=== PATIENT | female | born 1960 | race Caucasian/White ===

== ENCOUNTER 2018-02-04 06:09 | Emergency (ER) | payer OTHER ==
[2018-02-04] MEDS ORDERED: IPRATROPIUM/ALBUTEROL 0.5-2.5 MG/3 ML AMPUL NEB ONE (06:22)
[2018-02-04] MEDS ORDERED: METHYLPREDNISOLONE INJ 125 MG/2 ML SDV IV ONE (06:32)
--- NOTE | 2018-02-04 06:37 | ER Document Report ---
ED General - General Chief Complaint: Cough Stated Complaint: COUGH Time Seen by Provider: 02/04/18 06:26 Information source: Patient Notes: 57-year-old female with history of COPD presents the emergency department with productive cough over the last 3 days. Patient states that the cough has been worsening. She is coughing up yellow sputum. Patient denies any fever or chills. Patient is not on any home oxygen. She does not have a nebulizer machine at home. Patient states that she continues to smoke. Patient denies any chest pain but is having some difficulty breathing. TRAVEL OUTSIDE OF THE [place] IN LAST 30 DAYS: No - Related Data Allergies/Adverse Reactions: codeine Adverse Reaction (Verified 08/30/15 04:11) Past Medical History - General Information source: Patient - Social History Smoking Status: Current Every Day Smoker Family History: Reviewed & Not Pertinent Pulmonary Medical History: Reports: Hx COPD - no home O2 Past Surgical History: Reports: Hx Abdominal Surgery - gastric bypass, Hx Cholecystectomy, Hx Gastric Bypass Surgery, Hx Orthopedic Surgery - spinal surgery - Immunizations Hx Diphtheria, Pertussis, Tetanus Vaccination: Yes Review of Systems - Review of Systems Constitutional: No symptoms reported EENT: No symptoms reported Cardiovascular: No symptoms reported Respiratory: Cough, Wheezing Gastrointestinal: No symptoms reported Genitourinary: No symptoms reported Female Genitourinary: No symptoms reported Musculoskeletal: No symptoms reported Skin: No symptoms reported Hematologic/Lymphatic: No symptoms reported Neurological/Psychological: No symptoms reported -: Yes All other systems reviewed and negative Physical Exam - Vital signs Vitals: Pulse Resp Pulse Ox 123 H 22 H 84 L 02/04/18 06:14 02/04/18 06:14 02/04/18 06:14 - Notes Notes: PHYSICAL EXAMINATION: GENERAL: Frail, cachetic. HEAD: Atraumatic, normocephalic. EYES: Pupils equal round and reactive to light, extraocular movements intact, conjunctiva are normal. ENT: Nares patent, oropharynx clear without exudates. Moist mucous membranes. NECK: Normal range of motion, supple without lymphadenopathy LUNGS: Slight wheezing to the left lung base. HEART: Regular rate and rhythm without murmurs ABDOMEN: Soft, nontender, nondistended abdomen. No guarding, no rebound. No masses appreciated. Female : deferred Musculoskeletal: Normal range of motion, no pitting or edema. No cyanosis. NEUROLOGICAL: Cranial nerves grossly intact. Normal speech, normal gait. Normal sensory, motor exams PSYCH: Normal mood, normal affect. SKIN: Warm, Dry, normal turgor, no rashes or lesions noted. Course - Re-evaluation Re-evalutation: 02/04/18 06:36 EKG: Ventricular rate 122, OK of 124, QRS duration 156, QTc 473, sinus rhythm. No ST segment elevation. 02/04/18 09:34 Patient is tachycardic on arrival. Her heart rate is in the 120s. Patient's oxygen saturation was 84% on room air. She does not have home oxygen. Patient was given a DuoNeb treatment and Solu-Medrol. Labs and imaging obtained. Chest x-ray shows a left sided pneumonia. Patient's white count is within normal limits. Patient continues to have hypoxia off of oxygen. She continues to be tachycardic. I told the patient that she needs to be admitted to the hospital for further monitoring, treatment, and to get the patient started on home oxygen. Patient declines admission. Patient wants to leave AGAINST MEDICAL ADVICE. Patient is able to make decisions for herself. She is awake, alert, oriented x3. Patient understands that she may or her condition may worsen by leaving AGAINST MEDICAL ADVICE. Patient states that if she begins feeling worse she will return to the hospital but she does not want to stay at this time. I will start the patient on levofloxacin. Patient instructed to take the medication as directed, to follow-up with her primary care physician this week, and to return for worsening symptoms. - Vital Signs Vital signs: Temp Pulse Resp BP Pulse Ox 123 H 23 H 110/62 93 02/04/18 06:20 02/04/18 09:03 02/04/18 09:03 02/04/18 09:03 - Laboratory Result Diagrams: 02/04/18 06:35 02/04/18 07:40 Laboratory results interpreted by me: 02/04/18 02/04/18 06:35 07:40 RDW 14.3 H Seg Neutrophils % 84.6 H Lymphocytes % 8.7 L Creatinine 0.47 L Glucose 144 H Alkaline Phosphatase 172 H Discharge - Discharge Clinical Impression: Pneumonia Qualifiers: Pneumonia type: due to unspecified organism Laterality: left Lung location: unspecified part of lung Qualified Code(s): J18.9 - Pneumonia, unspecified organism Condition: Serious Disposition: AGAINST MEDICAL ADVICE Instructions: Pneumonia ([facility]) Prescriptions: Levofloxacin [Levaquin] 750 mg PO DAILY #5 tablet Referrals: FAREED MESSINA PA-C [ALLIED HEALTH PROFESSIONAL] - Follow up as needed
[2018-02-04] MEDS ORDERED: ALBUTEROL SULFATE 0.083% NEB 2.5 MG/3 ML AMPUL NEB ONE (06:42)
[2018-02-04 07:06] LABS: ABSOLUTE LYMPHOCYTES (AUTO) 0.8 10^3/uL (0.5-4.7); ABSOLUTE MONOCYTES (AUTO) 0.6 10^3/uL (0.1-1.4); ABSOLUTE NEUT (AUTO) 7.8 10^3/uL (1.7-8.2); BASOPHILS % (AUTO) 0.2 % (0-2); EOSINOPHILS % (AUTO) 0.1 % (0-6); HEMATOCRIT 43.2 % (36.0-47.0); HEMOGLOBIN 14.7 g/dL (12.0-15.5); LYMPHOCYTES % (AUTO) 8.7 % (13-45); MEAN CORPUSCULAR HEMOGLOBIN 31.4 pg (27.0-33.4); MEAN CORPUSCULAR HGB CONC 34.1 g/dL (32.0-36.0); MEAN CORPUSCULAR VOLUME 92 fl (80-97); MONOCYTES % (AUTO) 6.4 % (3-13); PLATELET COUNT 276 10^3/uL (150-450); RED BLOOD COUNT 4.68 10^6/uL (3.72-5.28); RED CELL DISTRIBUTION WIDTH 14.3 % (11.5-14.0); SEGMENTED NEUTROPHILS % (AUTO) 84.6 % (42-78); TOTAL CELLS COUNTED % (AUTO) 100 %; WHITE BLOOD COUNT 9.2 10^3/uL (4.0-10.5)
--- NOTE | 2018-02-04 07:44 | EKG REPORT ---
SEVERITY:- ABNORMAL ECG - SINUS TACHYCARDIA. NONSPECIFIC ST-T CHANGES, DIFFUSE. BIATRIAL ENLARGEMENT : Confirmed by: Ravinder Prakash MD 04-Feb-2018 07:43:58
--- NOTE | 2018-02-04 07:57 | RADIOLOGY REPORT (SQ) ---
EXAM DESCRIPTION: X-ray two view chest. CLINICAL HISTORY: 57 years Female, cough COMPARISON: Prior chest x-ray performed on 08/30/2015. TECHNIQUE: PA and Lateral views of the chest performed on 02/04/2018 at 7:27 AM FINDINGS: The lungs are well expanded. There is airspace disease in the left lower lobe and possibly lingula concerning for a pneumonic infiltrate. The remainder of the lungs are clear. There is opacification of the left lateral and posterior costophrenic sulci. There is no evidence of a pneumothorax. The cardiac silhouette is normal in size. The mediastinal contours are normal. No acute osseous abnormalities are identified. No focal soft tissue abnormalities are identified. IMPRESSION: Airspace disease in the left lower lobe and possibly lingula concerning for a pneumonic infiltrate. The lungs are otherwise clear.
[2018-02-04 08:31] LABS: ALANINE AMINOTRANSFERASE 18 U/L (9-52); ALBUMIN 3.9 g/dL (3.5-5.0); ALKALINE PHOSPHATASE 172 U/L (38-126); ANION GAP 16 (5-19); ASPARTATE AMINO TRANSFERASE 18 U/L (14-36); BILIRUBIN,DIRECT 0.4 mg/dL (0.0-0.4); BLOOD UREA NITROGEN 9 mg/dL (7-20); CALCIUM 9.4 mg/dL (8.4-10.2); CARBON DIOXIDE 25 mmol/L (22-30); CHLORIDE 102 mmol/L (98-107); GLUCOSE 144 mg/dL (75-110); POTASSIUM 3.7 mmol/L (3.6-5.0); SODIUM 142.5 mmol/L (137-145); TOTAL PROTEIN 6.7 g/dL (6.3-8.2)
[2018-02-04] MEDS ORDERED: NORMAL SALINE 1000 ML 1,000 ML IV ONE (09:13)
[2018-02-04] MEDS ORDERED: LEVOFLOXACIN 750 MG TABLET PO ONE (09:33)
[2018-02-04 09:41] VITALS: BP 110/62
== END 2018-02-04 10:00 | disposition left against medical advice (07) ==
LOC: ER 06:09
DX: J18.9 Pneumonia, unspecified organism (principal); J44.0 Chronic obstructive pulmonary disease with (acute) lower respiratory infection; R05 Cough; R00.0 Tachycardia, unspecified; R09.02 Hypoxemia; F17.200 Nicotine dependence, unspecified, uncomplicated; Z53.20 Procedure and treatment not carried out because of patient's decision for unspecified reasons
CPT/HCPCS: 93005; 94640 ×2; 99284; 96374; 36415; 87040; 87070; 87205; 85025; 87077; 80053; 84484; 87186; 83605; 71046; 93010; J2930; J7620

== ENCOUNTER 2019-09-08 08:18 | Emergency (ER) | payer OTHER ==
[2019-09-08] MEDS ORDERED: ACETAMINOPHEN 325 MG TABLET PO ONE (09:00)
[2019-09-08 09:06] LABS: APPEARANCE,URINE CLEAR; BILIRUBIN,URINE NEGATIVE (NEGATIVE); COLOR,URINE YELLOW; GLUCOSE, URINE NEGATIVE (NEGATIVE); KETONES,URINE NEGATIVE (NEGATIVE); LEUKOCYTE ESTERASE,URINE MODERATE (NEGATIVE); NITRITE,URINE NEGATIVE (NEGATIVE); PROTEIN,URINE NEGATIVE (NEGATIVE); URINE SPECIFIC GRAVITY 1.004; UROBILINOGEN,URINE NEGATIVE mg/dL (<2.0)
[2019-09-08] MEDS ORDERED: CEFTRIAXONE 1 GM/D5W RTU 1 GM/50 ML RTUPB IV ONE (11:35)
[2019-09-08] MEDS ORDERED: NORMAL SALINE 1000 ML 1,000 ML IV ONE (11:36)
--- NOTE | 2019-09-08 12:02 | RADIOLOGY REPORT (SQ) ---
EXAM DESCRIPTION: KUB/ABDOMEN (SINGLE VIEW) IMAGES COMPLETED DATE/TIME: 09/08/2019 11:49 am REASON FOR STUDY: urinary burning/frequency COMPARISON: None. NUMBER OF VIEWS: One view. TECHNIQUE: Supine radiographic image of the abdomen acquired. LIMITATIONS: None. FINDINGS: BOWEL GAS PATTERN: Normal bowel gas pattern. No dilated loops. CALCIFICATIONS: No suspicious calcifications. SOFT TISSUES: No gross mass or suggestion of organomegaly. HARDWARE: Lumbar fusion hardware is present. Surgical clips are present in the right upper quadrant. Postsurgical changes/chain sutures are present in the left abdomen. BONES: No acute fracture. No worrisome bone lesions. OTHER: No other significant finding. IMPRESSION: NO RADIOGRAPHIC EVIDENCE FOR ACUTE ABDOMINAL DISEASE. TECHNICAL DOCUMENTATION: JOB ID: [id number] 2010 [employer]- All Rights Reserved Reading location - IP/workstation name: [email or web address]
[2019-09-08 12:17] LABS: ABSOLUTE BASOPHILS # (AUTO) 0.1 10^3/uL (0.0-0.2); ABSOLUTE LYMPHOCYTES (AUTO) 1.5 10^3/uL (0.5-4.7); ABSOLUTE MONOCYTES (AUTO) 0.6 10^3/uL (0.1-1.4); ABSOLUTE NEUT (AUTO) 10.7 10^3/uL (1.7-8.2); BASOPHILS % (AUTO) 0.4 % (0-2); EOSINOPHILS % (AUTO) 0.1 % (0-6); HEMATOCRIT 43.7 % (36.0-47.0); HEMOGLOBIN 14.9 g/dL (12.0-15.5); LYMPHOCYTES % (AUTO) 11.5 % (13-45); MEAN CORPUSCULAR HEMOGLOBIN 29.6 pg (27.0-33.4); MEAN CORPUSCULAR VOLUME 87 fl (80-97); MONOCYTES % (AUTO) 4.9 % (3-13); PLATELET COUNT 261 10^3/uL (150-450); RED BLOOD COUNT 5.03 10^6/uL (3.72-5.28); RED CELL DISTRIBUTION WIDTH 16.1 % (11.5-14.0); SEGMENTED NEUTROPHILS % (AUTO) 83.1 % (42-78); TOTAL CELLS COUNTED % (AUTO) 100 %; WHITE BLOOD COUNT 12.8 10^3/uL (4.0-10.5)
[2019-09-08 12:27] LABS: ALBUMIN 4.6 g/dL (3.5-5.0); ALKALINE PHOSPHATASE 105 U/L (38-126); ANION GAP 7 (5-19); ASPARTATE AMINO TRANSFERASE 27 U/L (14-36); BILIRUBIN,TOTAL 0.5 mg/dL (0.2-1.3); BLOOD UREA NITROGEN 11 mg/dL (7-20); CALCIUM 9.8 mg/dL (8.4-10.2); CARBON DIOXIDE 29 mmol/L (22-30); CHLORIDE 101 mmol/L (98-107); GLUCOSE 103 mg/dL (75-110); POTASSIUM 4.3 mmol/L (3.6-5.0); TOTAL PROTEIN 7.4 g/dL (6.3-8.2)
--- NOTE | 2019-09-08 13:54 | ER Document Report ---
Entered by YASSINE ANAND SCRIBE 09/08/19 1138 Acting as scribe for:ADITI TAYLOR MD ED GI/ - General Chief Complaint: Urinary Problem Stated Complaint: URINARY ISSUE Time Seen by Provider: 09/08/19 09:45 Primary Care Provider: ANGELICA ROGERS FNP-C [Primary Care Provider] - Follow up as needed Information source: Patient Notes: This 58 year old female patient presents to the emergency department today with complaints of pain when urinating this morning. Patient also reports burning and blood when urinating. Patient states she has felt generally weak the past x1-2 weeks. Patient states she has a history of UTIs. TRAVEL OUTSIDE OF THE [place] IN LAST 30 DAYS: No - Related Data Allergies/Adverse Reactions: codeine Adverse Reaction (Verified 08/30/15 04:11) Past Medical History - General Information source: Patient - Social History Smoking Status: Current Every Day Smoker Cigarette use (# per day): Yes Chew tobacco use (# tins/day): No Frequency of alcohol use: None Drug Abuse: None Lives with: Alone Family History: Reviewed & Not Pertinent Pulmonary Medical History: Reports: Hx COPD - inhaler, nebulizer Musculoskeletal Medical History: Reports Other - Degenerative disc disease Past Surgical History: Reports: Hx Cholecystectomy, Hx Gastric Bypass Surgery, Hx Orthopedic Surgery - spinal surgery - Immunizations Hx Diphtheria, Pertussis, Tetanus Vaccination: Yes Review of Systems - Review of Systems Constitutional: See HPI, Weakness EENT: No symptoms reported Cardiovascular: No symptoms reported Respiratory: No symptoms reported Gastrointestinal: No symptoms reported Genitourinary: See HPI, Burning, Hematuria, Pain Female Genitourinary: No symptoms reported Musculoskeletal: No symptoms reported Skin: No symptoms reported Hematologic/Lymphatic: No symptoms reported Neurological/Psychological: No symptoms reported -: Yes All other systems reviewed and negative Physical Exam - Vital signs Vitals: Temp Pulse Resp BP Pulse Ox 100.5 F H 110 H 16 147/83 H 89 L 09/08/19 08:25 09/08/19 08:25 09/08/19 08:25 09/08/19 08:25 09/08/19 08:25 - General General appearance: Alert, Other - Appears generally weak - HEENT Head: Normocephalic, Atraumatic Eyes: Normal Pupils: PERRL - Respiratory Respiratory status: No respiratory distress Chest status: Nontender Breath sounds: Normal Chest palpation: Normal - Cardiovascular Rhythm: Regular Heart sounds: Normal auscultation Murmur: No - Abdominal Inspection: Normal Distension: No distension Bowel sounds: Normal Tenderness: Nontender. No: Rebound - Back Back: No: CVA tenderness - Extremities General upper extremity: Normal inspection. No: Edema General lower extremity: Normal inspection. No: Edema - Neurological Neuro grossly intact: Yes Cognition: Normal Orientation: AAOx4 Speech: Normal - Psychological Associated symptoms: Normal affect, Normal mood - Skin Skin Temperature: Warm Skin Moisture: Dry Skin Color: Normal Course - Re-evaluation Re-evalutation: 09/08/19 13:45 Patient resting comfortably not showing signs of distress at this time. - Vital Signs Vital signs: Temp Pulse Resp BP Pulse Ox 98.1 F 110 H 16 147/83 H 89 L 09/08/19 10:58 09/08/19 08:25 09/08/19 08:25 09/08/19 08:25 09/08/19 08:25 09/08/19 13:45 Vital signs stable except for sinus tachycardia 110 afebrile. Pulse ox is 89% the patient is not showing any signs of respiratory distress. Patient does have COPD and takes an nebulizer and albuterol treatment treatments. - Laboratory Result Diagrams: 09/08/19 08:46 09/08/19 08:46 Laboratory results interpreted by me: 09/08/19 09/08/19 09/08/19 08:46 08:46 08:46 WBC 12.8 H RDW 16.1 H Lymph % (Auto) 11.5 L Absolute Neuts (auto) 10.7 H Seg Neutrophils % 83.1 H Sodium 136.9 L Urine Blood LARGE H Ur Leukocyte Esterase MODERATE H 09/08/19 13:46 Patient's urine shows large amount of white cells and red cells in urine. This is most likely consistent with a urinary tract infection with her symptoms. Patient's white blood cell count is 12.8. Patient does not have fever and is nontoxic. - Diagnostic Test Radiology reviewed: Image reviewed, Reports reviewed Radiology results interpreted by me: 09/08/19 13:46 KUB x-ray shows no acute process. Discharge - Discharge Clinical Impression: Urinary tract infection, COPD (chronic obstructive pulmonary disease) Condition: Stable Disposition: HOME, SELF-CARE Prescriptions: Albuterol Sulfate [Albuterol Sulfate Hfa] 8.5 gm IH QID PRN #1 [id number] PRN Reason: wheezing Nitrofurantoin Monohyd/M-Cryst [Macrobid 100 mg Capsule] 100 mg PO BID #20 cap Albuterol Sulfate [Proventil 0.5% Neb 2.5 mg/0.5 ml Vial.neb] 2.5 mg NEB BID 30 Days #60 vial.neb Referrals: ANGELICA ROGERS ASSISTANT WRESTLING COACH-C [Primary Care Provider] - Follow up as needed I personally performed the services described in the documentation, reviewed and edited the documentation which was dictated to the scribe in my presence, and it accurately records my words and actions.
[2019-09-08 14:04] VITALS: BP 132/86
== END 2019-09-08 14:08 | disposition home or self-care (01) ==
LOC: ER 08:18
DX: N39.0 Urinary tract infection, site not specified (principal); F17.210 Nicotine dependence, cigarettes, uncomplicated; J44.9 Chronic obstructive pulmonary disease, unspecified; Z90.49 Acquired absence of other specified parts of digestive tract; Z87.440 Personal history of urinary (tract) infections; Z88.6 Allergy status to analgesic agent; Z98.84 Bariatric surgery status
CPT/HCPCS: 99283; 96361; 96365; 36415; 87040; 87086; 85025; 87077; 80053; 81001; 87186; 87150 ×26; 74018; J7030; J0696

== ENCOUNTER → 2019-10-11 | Outpatient (CLI) | payer OTHER ==
--- NOTE | 2019-10-11 13:24 | WOMENS IMAGING REPORT ---
EXAM DESCRIPTION: 3D SCREENING MAMMO BILAT IMAGES COMPLETED DATE/TIME: 10/11/2019 10:46 am REASON FOR STUDY: ENCOUNTER FOR SCREENING MAMMO FOR MAL ULISES OF BREAST Z12.31 ENCNTR SCREEN MAMMOGRA M FOR MALIGNANT NEOPLASM OF RODRIGUEZ COMPARISON: 10/30/2013 and 10/15/2013 EXAM PARAMETERS: Standard craniocaudal and mediolateral oblique views of each breast recorded using digital acquisition and breast tomosynthesis. Read with the assistance of CAD. .[facility] - R2 Data Control Clerk Supervisor Version 9.2 LIMITATIONS: None. FINDINGS: Findings present which are benign by mammographic criteria. No suspicious masses, calcific ations or architectural distortion. Pertinent benign findings: Circumscribed nodular densities throughout the left breast appears stable to decreased in size. These are previously characterized as simple cysts. Benign mammographic findings may include one or more of the following: Smooth masses, popcorn/rim/coa rse calcifications, asymmetries, post-procedure changes, and lesions with long-standing stability. IMPRESSION: BENIGN MAMMOGRAPHIC FINDINGS. BIRADS 2 BREAST DENSITY: b. There are scattered areas of fibroglandular density. BIRAD: ASSESSMENT: 2 BENIGN FINDING(S) RECOMMENDATION: ROUTINE SCREENING COMMENT: The patient has been notified of the results by letter per MQSA requirements. Additional no tification policies are in place for contacting patient with suspicious or incomplete findings. Quality ID #[id number]: The [employer] recommends an annual screening mammogram for women aged 40 years or over. This facility utilizes a reminder system to ensure that all patients receive reminder letters, and/or direct phone calls for appointments. This includes reminders for routine scr eening mammograms, diagnostic mammograms, or other Breast Imaging Interventions when appropriate. Th is patient will be placed in the appropriate reminder system. TECHNICAL DOCUMENTATION: FINDING NUMBER: (1) ASSESSMENT: (1) JOB ID: [id number] 2010 [employer]- All Rights Reserved Reading location - IP/workstation name: [email or web address]
== END ==
LOC: WI 10:17
PROVIDERS: ATTEND Nurse Practitioner Family
DX: Z12.31 Encounter for screening mammogram for malignant neoplasm of breast (principal); N60.02 Solitary cyst of left breast
CPT/HCPCS: 77063; 77067